=== PATIENT | female | born 1960 | race Caucasian/White ===

== ENCOUNTER 2018-07-22 08:18 | Inpatient (IN) | payer MEDICARE, MEDICAID ==
[2018-07-21 11:59] LABS: HEMATOCRIT 35.3 % (36.0-48.0); HEMOGLOBIN 11.5 g/dL (12-16); MCHC 32.6 g/dL (31.0-37.0); MCV 92.2 fL (80.0-100.0); MEAN PLATELET VOLUME 10.3 fL (7.4-10.4); RBC 3.83 10x6/uL (4.00-5.40); RDW 13.9 % (11.5-14.5); WBC 4.7 10x3/uL (4.8-10.8)
[2018-07-21 12:16] LABS: ALBUMIN 3.4 g/dL (3.4-5.0); ANION GAP 13.7 mmol/L (8-16); BILIRUBIN - TOTAL 0.25 mg/dL (0.2-1.3); CALCIUM 8.6 mg/dL (8.5-10.1); CARBON DIOXIDE 27.8 mmol/L (21.0-32.0); CREATININE - SERUM 1.2 mg/dL (0.6-1.3); POTASSIUM - SERUM 3.5 mmol/L (3.5-5.1); PROTEIN - SERUM 6.8 g/dL (6.4-8.2)
[2018-07-22] VITALS (7 sets, daily range): BP systolic 98–140; BP diastolic 71–92; BMI 23.3
[~2018-07-22] VITALS: Ht 157.5 cm; Wt 57.1 kg
[~2018-07-22 08:18] MED LIST: ATIVAN1 MG PO; CEREFOLIN TAB1 TAB PO; COREG12.5 MG PO; FOLIC ACID1 MG PO; LASIX20 MG PO; PHENERGAN25 M1 PO; PROPYLTHIOURACI50 M1 PO; REGLAN10 MG PO; SOMA350 MG PO; TIROSINT88 MCG PO; TOPAMAX50 MG PO; TYLENOL #4 W/CO1 TAB PO
--- NOTE | 2018-07-22 15:07 | NUR ---
PATIENT BLEEDING THROUGH ABDOMINAL DRESSING. SPOKE TO DR. MCCOLLUM. REENFORCED WITH 4X4 GAUZE AND MEDIPORE TAPE. DATE, TIME, INITIALLED.
--- NOTE | 2018-07-22 19:00 | NUR ---
PT IN BED IN LOW FOWLERS POSITION RESTING QUIETLY WITH EYES CLOSED. ALERT AND ORIENTED X4. VITAL SIGNS STABLE AND AFEBRILE. NO VISUAL CUES OF DISTRESS NOTED. DENIES ANY OTHER NEEDS AT THIS TIME. BED LOW, SIDE RAILS UP X2. CALL LIGHT IN REACH WILL CONTINUE TO MONITOR.
[2018-07-23] VITALS (7 sets, daily range): BP systolic 100–138; BP diastolic 63–91; Ht 157.5 cm; Wt 57.1 kg
--- NOTE | 2018-07-23 08:15 | NUR ---
AWAKE AND ALERT, EVEN UNLABORED BREATHING, PACEMAKER, RIGHT HAND IV PATENT, INFUSING NS WITH INTEL RECRUITER PRESENT, MIDLINE DRESSING C/D/I. C/O NAUSEA, ZOFRAN GIVEN VIA ESTELLA PANDEY, STATES "PAIN IS NOT BEING CONTROLLED." OFFERED REPOSITIONING AND WILL CONSULT WITH DR. MCCOLLUM ABOUT OTHER MEANS TO CONTROL PAIN, PLEXIBOOTS PRESENT AND IN OPERATION, DENIES ANY OTHER NEEDS, BED LOWERED AND LOCKED, CALL LIGHT WITHIN REACH. CPOC
--- NOTE | 2018-07-23 10:48 | NUR ---
AFTER ADMINISTRATION OF ZOFRAN PT STATES "IT MUST HAVE BEEN THE NAUSEA MORE THAN THE PAIN. I AM NOW AT ABOUT A 4" DENIES ANY OTHER NEEDS OR DISCOMFORTS, BED LOWERED AND LOCKED, CALL LIGHT WITHIN REACH. CPOC
--- NOTE | 2018-07-23 12:30 | NUR ---
FULL SHOWER, SKIN CLEAN, DRY AND INTACT OTHER THAN ABD INCISION ALREADY DOCUMENTED, DRESSING ON MIDLINE CLEAN, DRY, AND INTACT, DENIES ANY OTHER NEEDS OR DISCOMFORTS, BED LOWERED AND LOCKED, CALL LIGHT WITHIN REACH. CPOC
--- NOTE | 2018-07-23 13:26 | NUR ---
C/O NAUSEA, ZOFRAN GIVEN PER ORDER. DRY HEAVING, OBSERVED NO EMESIS, DENIES NO OTHER NEEDS OR DISCOMFORTS, BED LOWERED AND LOCKED, CALL LIGHT WITHIN REACH. CPOC
--- NOTE | 2018-07-23 18:53 | NUR ---
AWAKE AND ALERT, DRESSING C/D/I ON MIDLINE ABD, IN IN RIGHT HAND INFUSING, PATENT, DENIES ANY CURRENT NEEDS OR DISCOMFORTS, BED LOWERED AND LOCKED, CALL LIGHT WITHIN REACH. CPOC
--- NOTE | 2018-07-23 21:57 | OP ---
PATIENT NAME: ASHLEY CALVILLO MEDICAL RECORD: [id number] :60 LOCATION:D.MS [id number] ADMISSION DATE: SURGEON: ELIAS MCCOLLUM MD DATE OF OPERATION: 07/22/2018 PREOPERATIVE DIAGNOSIS: Recurrent incisional hernia. POSTOPERATIVE DIAGNOSES: 1. Recurrent incarcerated incisional hernia. 2. Intraabdominal adhesions. PROCEDURE: Diagnostic laparoscopy with conversion to exploratory laparotomy and open recurrent incarcerated incisional hernia repair without mesh. SURGEON: Elias Mccollum MD ROVING DEPARTMENT END FINDER: Gabriel Salas, avionics systems technician. BLOOD LOSS: 50 mL. ANESTHESIA: General. COMPLICATIONS: None. The risks, possible complications and alternatives to procedure were explained to the patient. She elects to proceed. The discussion specifically included, but was not limited to, bleeding requiring emergency reoperation, infection, intestinal injury as well as chronic pain. I examined the patient in the holding area. The patient had a periumbilical bulge, which appeared to be a recurrent hernia. Also, left lower quadrant area that was painful, but I could detect no hernia at that site. It is at the lateral most site on the left from the patient's abdominoplasty. OPERATIVE COURSE: The patient was conveyed to the operating room electively on 07/22/2018. General anesthesia was induced by the anesthesia staff. The abdomen was sterilely prepped and draped. A small skin katina was accomplished in the left upper quadrant. Veress needle was inserted through the skin katina into the peritoneal cavity. CO2 insufflation was begun. Once a sufficient pneumoperitoneum had been achieved, a 5-mm trocar was inserted through an incision in the left upper quadrant. During insertion of the trocars, there was no apparent injury to the bowels, any intraperitoneal or retroperitoneal structures. Abdominal survey was undertaken. Extensive intraabdominal adhesions were noted. I elected to convert to an exploratory laparotomy. A midline incision was accomplished. I entered the hernia sac. The peritoneal cavity was entered sharply through portions of mesh. Adhesions were noted. I began an adhesiolysis. The adhesiolysis took 20 minutes, involved grade I, II and III types of adhesions. There was one seromyotomy which was reinforced with a single horizontal mattress 3-0 Vicryl suture. There were no full thickness enterotomies. OPERATIVE REPORT [id number] ASHLEY CALVILLO I was able to excise the hernia sac as well as some redundant mesh. It was not going to be necessary to place another piece of mesh. There was some incarcerated bowel within the hernia sac and adhesive bands were lysed. I then closed the fascia and brought the mesh together with a running looped #1 PDS from the cephalad and caudad directions. In the midline, the subdermis was approximated with interrupted 3-0 Vicryls. The skin was approximated with a running intracuticular 3-0 Vicryl. In the left upper quadrant, the trocar site was closed with a single intracuticular 3-0 Vicryl. Benzoin and Steri-Strips were applied. The patient was then extubated and conveyed to post-anesthesia care unit where she was in stable condition. She will require IV narcotic analgesia. For this reason, she will be placed in the hospital on a SALES ROUTE DRIVER HELPER. TRANSINT:[id number] Voice Confirmation ID: [id number] DOCUMENT ID: [id number] ELIAS MCCOLLUM MD at 2157 CC: [id number] DICTATION DATE: 07/22/18 1127 TORTS LAW PROFESSOR: 07/22/18 1326 [facility] [address] [id number]
--- NOTE | 2018-07-23 23:50 | NUR ---
In bed with no needs at this time. Call light in reach
[2018-07-24] VITALS: BP 130/71
[2018-07-24 03:00] VITALS: BP 126/63
--- NOTE | 2018-07-24 07:28 | NUR ---
PT AAOX4 RESP EVEN AND NONALBORED, NO SIGNS OF DISTRESS NOTED, PT STATES " I GOT SOME REST LASTNIGHT", CL IN REACH WILL CONTINUE TO MONITOR
[2018-07-24 08:48] VITALS: BP 97/58
[2018-07-24 12:00] VITALS: BP 109/70
--- NOTE | 2018-07-24 12:02 | NUR ---
CLINICAL DATA PROGRAMMER NOTE: PT SITTING UP IN BED. CO OF NAUSEA. "VOMITED CLEAR LIQUID". BROUGHT PT EMESIS BAG AND REPORTED TO HER NURSE, TATY RHODSE. NO S/S OF ACUTE DISTRESS. CL IN PLACE.
[2018-07-24 16:00] VITALS: BP 138/97
--- NOTE | 2018-07-24 18:12 | NUR ---
PT AAOX4 RESP EVEN AND NONALBORED, NO SIGNS OF DISTRESS NOTED, SITTING UP IN BED EATING DINNER, CL IN REACH
[2018-07-24 19:00] VITALS: BP 126/82
--- NOTE | 2018-07-24 19:25 | NUR ---
RECEIVED REPORT, ASSUMED CARE, A&O, REQUESTING TO TAKE A SHOWER, DENIES NEEDS, NO S/S OF DISTRESS NOTED, CALL LIGHT IN REACH, BED LOWEST POSITION, WILL CONTINUE POC
--- NOTE | 2018-07-24 21:01 | NUR ---
DRESSING TO ABDOMEN CLEANED AND CHANGED
--- NOTE | 2018-07-24 22:45 | NUR ---
PATIENT AWAKE IN BED ASK FOR ZOFRAN GIVEN BY WELFARE INTERVIEWER STATED NO OTHER NEEDS. NO S/S OF ACUTE DISTRESS. CALL LIGHT IN REACH. WILL CONTIUE WITH PLAIN OF CARE.
[2018-07-25] VITALS: BP 120/71
[2018-07-25 03:00] VITALS: BP 124/87
[2018-07-25 09:00] VITALS: BP 100/63
[2018-07-25 13:34] VITALS: BP 118/85
[2018-07-25 16:00] VITALS: BP 110/74
--- NOTE | 2018-07-25 20:00 | NUR ---
ALERT SITTING UP IN BED ABD DRESSING DRY AND INTACT NO DRAINAGE NOTED IV INFUSING WITHOUT DIFFICULTY PRODUCT MARKETING EXECUTIVE IN USE FOR PAIN CONTROL CALL LIGHT IN REACH NO NEEDS VOICED AT THIS TIME
[2018-07-25 21:13] VITALS: BP 90/61
[2018-07-26 01:32] VITALS: BP 112/64
[2018-07-26 05:23] VITALS: BP 103/71
[2018-07-26 08:07] VITALS: BP 113/78
[2018-07-26 12:39] VITALS: BP 97/51
[2018-07-26 16:06] VITALS: BP 107/75
--- NOTE | 2018-07-26 16:16 | NUR ---
VACUUM FORM OPERATOR NOTES - NO COMPLICATIONS FROM SURGERY. DRESSING CLEAN DRY AND INTACT. TOLERATING PO PAIN MEDICATIONS. STARTED REGULAR DIET TODAY. DISCUSSING DC FOR TOMORROW.
--- NOTE | 2018-07-26 19:18 | NUR ---
AWAKE AND ALERT ORIENTED X3 LCTA BOWEL SOUNDS ACTIVE...DRSG IN PLACE DRY AND INTACT INSICION NOT OBSERVED NOT TENDER TO TOUCH BUT SOME COMPLAINT OF PAIN AT SITE ...PT REPORTS BM A LITTLE EARLIER BED LOW SRX2 AND CALL LIGHT IS IN REACH
[2018-07-26 21:23] VITALS: BP 98/64
[2018-07-27 01:09] VITALS: BP 98/68
--- NOTE | 2018-07-27 03:29 | NUR ---
RESTING QUITELY IN BED RESP UNLABORED NO APPARENT DISTRESS CALL LIGHT IN REACH
[2018-07-27 04:34] VITALS: BP 92/57
--- NOTE | 2018-07-27 04:34 | NUR ---
VS WNL DENIES PAIN AT THIS TIME DRSG REMAINS DRY AND INTACT
--- NOTE | 2018-07-27 07:35 | NUR ---
PT RESTING IN BED, EYES OPEN. PT C/O PAIN, 5/10. GAVE NORCO 10 FOR PAIN. NO S/S OF ACUTE DISTRESS NOTED. PT POD 3 HERNIA MESH REPAIR, MIDLINE INCISION, DRESSING CDI. PT ALERT AND ORIENTED. UP AD ALEM. IV TO LEFT FOREARM, SL, SITE PATENT WITHOUT REDNESS OR SWELLING. PT DENIES ANYTHING FURTHER AT THIS TIME. CALL LIGHT IN REACH. WILL CONTINUE TO MONITOR.
[2018-07-27 08:39] VITALS: BP 93/58
[2018-07-27] MEDS ORDERED: HYDROCODON-ACE1 EAC7 PO (09:22)
--- NOTE | 2018-07-27 10:45 | MORECARE ---
CASE MANAGEMENT DISCHARGE SUMMARY PATIENT: SYBIL JACOME UNIT: [id number] ADM DATE: 07/25/18 AGE: 58 : 60 SEX: F ROOM/BED: D.2235 AUTHOR: TAWANNA MARCOS PHYSICIAN: REFERRING PHYSICIAN: ELIAS MCCOLLUM MD DATE OF SERVICE: 07/27/18 Discharge Plan Patient Name: SYBIL JACOME Facility: [facility]:[place] : 1960 Planned Disposition: Home or Self Care Anticipated Discharge Date: 07/27/18 Discharge Date: Expected LOS: 2 Initial Reviewer: [email or web address] Initial Review Date: 07/27/2018 Generated: 07/27/18 11:45 am DCPIA - Discharge Planning Initial Assessment Updated by [email or web address]: Pat Roman on 07/27/18 10:43 am * Is the patient Alert and Oriented? Yes * How many steps to enter\exit or inside your home? 0-ramp * PCP Dr. Richards in [place] * Pharmacy [facility] in [place] * Preadmission Environment Home with Family * ADLs Independent * Equipment None * List name and contact numbers for known caregivers / representatives who currently or will assist patient after discharge: Sybil Jacome-mother. [phone] * Verbal permission to speak to the caregivers and representatives has been obtained from the patient. Yes * Community resources currently utilized None * Additional services required to return to the preadmission environment? No * Can the patient safely return to the preadmission environment? Yes * Has this patient been hospitalized within the prior 30 days at any hospital? No Patient Name: SYBIL JACOME Page [id number] at 1045 All edits/amendments must be made on the electronic document DICTATION DATE: 07/27/18 1044 LOCOMOTIVE MECHANIC: RACHAEL 07/27/18 1044 RPT#: [id number] DC DATE: STATUS: ADM IN [facility] [address] [place] [address] END OF REPORT
--- NOTE | 2018-07-27 10:53 | MORECARE ---
CASE MANAGEMENT DISCHARGE SUMMARY PATIENT: SYBIL JACOME UNIT: [id number] ADM DATE: 07/25/18 AGE: 58 : 60 SEX: F ROOM/BED: D.2235 AUTHOR: HEMANT,DOC PHYSICIAN: REFERRING PHYSICIAN: ELIAS MCCOLLUM MD DATE OF SERVICE: 07/27/18 Discharge Plan Patient Name: SYBIL JACOME Facility: [facility]:[place] : 1960 Planned Disposition: Home or Self Care Anticipated Discharge Date: 07/27/18 Discharge Date: Expected LOS: 2 Initial Reviewer: [email or web address] Initial Review Date: 07/27/2018 Generated: 07/27/18 11:53 am Comments DCP- Discharge Planning Updated by [email or web address]: Pat Roman on 07/27/18 9:[address] Patient Name: SYBIL JACOME Admission Status: Elective Accout number: [id number] Admission Date: 07-25-2018 : 1960 Admission Diagnosis:INCISIONAL HERNIA WITHOUT OBSTRUCTION OR GANGRENE Attending: ELIAS MCCOLLUM Current LOS: 2 Anticipated DC Date: 07-27-2018 Planned Disposition: Home or Self Care Primary Insurance: [facility] MEDICARE SOLUTIONS Discharge Planning Comments: Cm spoke with patient. Mother present in room. States she lives at home with mother. Denies needs for DME or home health services. No needs identified. Mother will transport home. Roller Helper: Pat Roman DCPIA - Discharge Planning Initial Assessment Updated by [email or web address]: Pat Roman on 07/27/18 10:43 am * Is the patient Alert and Oriented? Yes * How many steps to enter\exit or inside your home? 0-ramp * PCP Dr. Richards in [place] * Pharmacy [facility] in [place] * Preadmission Environment Home with Family * ADLs Independent * Equipment None * List name and contact numbers for known caregivers / representatives who currently or will assist patient after discharge: Sybil Jacome-mother. [phone] * Verbal permission to speak to the caregivers and representatives has been obtained from the patient. Yes * Community resources currently utilized None * Additional services required to return to the preadmission environment? No * Can the patient safely return to the preadmission environment? Yes * Has this patient been hospitalized within the prior 30 days at any hospital? No Last DP export: 07/27/18 9:45 a Patient Name: SYBIL JACOME Page [id number] at 1053 All edits/amendments must be made on the electronic document DICTATION DATE: 07/27/18 105 PATIENT SAFETY TECH: RACHAEL 07/27/18 1053 RPT#: [id number] DC DATE: STATUS: ADM IN [facility] [address] [place] [address] END OF REPORT
--- NOTE | 2018-07-27 11:51 | NUR ---
PT DISCHARGED HOME WITH FAMILY VIA WHEELCHAIR. WENT OVER DISCHARGE INSTRUCTIONS WITH PT. PT ACKNOWLEDGED INSTRUCTIONS. DISCONTINUED IV, CATHETER TIP INTACT. NO C/O PAIN. NO S/S OF ACUTE DISTRESS NOTED. PT DENIES ANY CONCERNS.
--- NOTE | 2018-08-02 07:15 | MORECARE ---
CASE MANAGEMENT DISCHARGE SUMMARY PATIENT: SYBIL JACOME UNIT: [id number] ADM DATE: 07/25/18 AGE: 58 : 60 SEX: F ROOM/BED: D.2235 AUTHOR: HEMANT,DOC PHYSICIAN: REFERRING PHYSICIAN: ELIAS MCCOLLUM MD DATE OF SERVICE: 08/02/18 Discharge Plan Patient Name: SYBIL JACOME Facility: [facility]:[place] : 1960 Planned Disposition: Home or Self Care Anticipated Discharge Date: 07/27/18 Discharge Date: 07/27/2018 Expected LOS: 2 Initial Reviewer: [email or web address] Initial Review Date: 07/27/2018 Generated: 08/02/18 8:15 am Comments DCP- Discharge Planning Updated by [email or web address]: Pat Roman on 07/27/18 9:[address] Patient Name: SYBIL JACOME Admission Status: Elective Accout number: [id number] Admission Date: 07-25-2018 : 1960 Admission Diagnosis:INCISIONAL HERNIA WITHOUT OBSTRUCTION OR GANGRENE Attending: ELIAS MCCOLLUM Current LOS: 2 Anticipated DC Date: 07-27-2018 Planned Disposition: Home or Self Care Primary Insurance: [facility] MEDICARE SOLUTIONS Discharge Planning Comments: Cm spoke with patient. Mother present in room. States she lives at home with mother. Denies needs for DME or home health services. No needs identified. Mother will transport home. Mash Processing Operator: Pat Roman DCPIA - Discharge Planning Initial Assessment Updated by [email or web address]: Pat Roman on 07/27/18 10:43 am * Is the patient Alert and Oriented? Yes * How many steps to enter\exit or inside your home? 0-ramp * PCP Dr. Richards in [place] * Pharmacy [facility] in [place] * Preadmission Environment Home with Family * ADLs Independent * Equipment None * List name and contact numbers for known caregivers / representatives who currently or will assist patient after discharge: Sybil Jacome-mother. [phone] * Verbal permission to speak to the caregivers and representatives has been obtained from the patient. Yes * Community resources currently utilized None * Additional services required to return to the preadmission environment? No * Can the patient safely return to the preadmission environment? Yes * Has this patient been hospitalized within the prior 30 days at any hospital? No Last DP export: 07/27/18 9:53 a Patient Name: SYBIL JACOME Page 95235 at 0715 All edits/amendments must be made on the electronic document DICTATION DATE: 08/02/18714 PHARMACOVIGILANCE SCIENTIST: RACHAEL 08/02/18714 RPT#: [id number] DC DATE:07/27/18 STATUS: DIS IN [facility] [address] [place] [address] END OF REPORT
== END 2018-07-27 11:53 | disposition home or self-care (01) | DRG 354 ==
LOC: D.MS 08:18 → D.OPS 08:18 → D.PAN 08:35 → D.MS 12:16 → OBSVTIME 12:17 → D.MS 12:17 → D.OPS 12:17 → D.MS 07-25 10:50 → D.OPS 07-25 11:05 → D.MS 07-27 11:53
PROVIDERS: Anesthesiology; ADMIT Surgery
PROC: 0WQF0ZZ Repair Abdominal Wall, Open Approach (ICD-10-PCS; principal; 2018-07-22 08:00)
DX: K43.2 Incisional hernia without obstruction or gangrene (principal); K56.50 Intestinal adhesions [bands], unspecified as to partial versus complete obstruction